=== PATIENT | female | born 2000 | race Caucasian/White ===

== ENCOUNTER 2025-05-01 15:21 | Emergency (ER) | payer OTHER ==
[~2025-05-01 15:21] MED LIST: Iopamidol 300 61% 100 ML VIAL FS ONE
[2025-05-01 18:11] LABS: #Basophils 0.03 10x3/uL (0.0-0.2); #Eosinophils 0.03 10x3/uL (0.0-0.5); #Monocytes 0.64 10x3/uL (0.0-1.1); #Neutrophils 3.48 10x3/uL (1.5-8.4); %Basophils 0.4 % (0.0-2.0); %Eosinophils 0.4 % (0.0-6.0); %Lymphocytes 39.5 % (18.0-47.0); %Monocytes 9.2 % (0.0-10.0); %Neutrophils 50.2 % (40.0-75.0); Hematocrit 40.0 % (34.9-44.5); Hemoglobin 14.0 g/dL (12.0-15.5); Mean Corpuscular Hemoglobin 29.1 pg (27.0-33.0); Mean Corpuscular Volume 83.2 fL (81.6-98.3); Platelet Count 226 10x3/uL (150-450); Red Blood Cell (RBC) Count 4.81 10x6/uL (3.90-5.03); White Blood Cell (WBC) Count 6.94 10x3/uL (3.5-10.5)
[2025-05-01 18:28] LABS: ALT (SGPT) 16 U/L (Less than 34); AST (SGOT) 23 U/L (11-34); Albumin 4.0 g/dL (3.1-4.5); Alkaline Phosphatase 36 U/L (40-110); Anion Gap 12 mmol/L (10-20); BUN (Urea Nitrogen) 7 mg/dL (7.0-18.7); Bilirubin, Total 0.4 mg/dL (0.3-1.2); Calc. Creatinine Clearance 0 mL/min (70-130); Calcium 9.2 mg/dL (7.8-10.44); Carbon Dioxide 22 mmol/L (22-29); Chloride 107 mmol/L (98-107); Globulin 3.3 g/dL (2.4-3.5); Glucose 84 mg/dL (70-105); Lipase 16 U/L (8-78); Potassium 4.0 mmol/L (3.5-5.1); Sodium 137 mmol/L (136-145)
== END 2025-05-01 21:01 | disposition home or self-care (01) ==
LOC: CSHERS 15:21
DX: R10.31 Right lower quadrant pain (principal)
CPT/HCPCS: 74177; 76856; 80053; 83690; 85025; Q9967